=== PATIENT | female | born 1970 | race African-American/Black ===

== ENCOUNTER 2018-06-30 10:40 | Emergency (ER) | payer BC, OTHER ==
[2018-06-30] MEDS ORDERED: Cyclobenzaprine TAB* 10 MG PO ONE (12:46)
--- NOTE | 2018-06-30 12:57 | UC ---
Neck Pain HPI - HPI Summary HPI Summary: Woke up 3 days ago with inability to move her head at the neck. Denies any injury. Ibuprofen and icy hot not helping. Denies headache, fever, visual disturbances. No trismus or difficulties eating or swallowing. No previous similar neck injuries. 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 Onset/Duration Of Injury/Symptoms: Days Mechanism Of Injury: No Known Trauma Timing: Constant Onset/Duration: Sudden Onset Severity: Severe Pain Intensity: 10 Pain Scale Used: 0-10 Numeric Location: Discrete At: - NECK Character: Sharp, Stiff Aggravating Factors: Movement Alleviating Factors: Nothing Associated Signs & Symptoms: Negative: Swelling, Redness, Bruising, Fever, Weakness, Headache, Paresthesia - Allergies/Home Medications Allergies/Adverse Reactions: Allergies Allergy/AdvReac Type Severity Reaction Status Date / Time Penicillins Allergy Anaphylatic Verified 06/30/18 11:29 Shock PMH/Surg Hx/FS Hx/Imm Hx Cardiovascular History: Hypertension - Surgical History Surgical History: Yes Surgery Procedure, Year, and Place: hysterectomy 03/2014. tubal ligation - Family History Known Family History: Positive: Hypertension - Social History Alcohol Use: Weekly Substance Use Type: Cocaine, Marijuana Substance Use Comment - Amount & Last Used: daily Smoking Status (MU): Light Every Day Tobacco Smoker Type: Cigarettes Household Exposure Type: Cigarettes - Immunization History Most Recent Influenza Vaccination: unknown Most Recent Tetanus Shot: unknown Most Recent Pneumonia Vaccination: n/a Review Of Systems Constitutional: Positive: Negative Skin: Positive: Negative Cardiovascular: Positive: Negative Gastrointestinal: Positive: Negative Genitourinary: Positive: Negative Musculoskeletal: Positive: Arthralgia, Decreased ROM, Myalgia All Other Systems Reviewed And Are Negative: Yes Physical Exam Triage Information Reviewed: Yes Appearance: Well-Nourished, Pain Distress - MODERATE Vital Signs: Initial Vital Signs Temp 99.0 F 06/30/18 11:25 Pulse 80 06/30/18 11:25 Resp 18 06/30/18 11:25 BP 159/114 06/30/18 11:25 Pulse Ox 99 06/30/18 11:25 Vital Signs Reviewed: Yes Eyes: Positive: Conjunctiva Clear ENT: Positive: Hearing grossly normal, Pharynx normal, TMs normal. Negative: Trismus Neck: Positive: No Lymphadenopathy, Tenderness @ - TRAPEZIOUS MUSCLES BILATERALLY Respiratory Exam: Normal Cardiovascular Exam: Normal Abdomen Description: Positive: Soft Musculoskeletal: Positive: No Edema, ROM Limited @ - NECK Neurological: Positive: Alert, Other: - NEG KERNIG. UNABLE TO ASSESS MARILYNKI DUE TO PT DISCOMFORT. Psychological: Positive: Normal Response To Family, Age Appropriate Behavior Skin: Negative: Rashes Diagnostics - Radiology CERVICAL SPINE XRAYS Radiology Interpretation Completed By: Radiologist Summary of Radiographic Findings: 1. STRAIGHTENING AND REVERSAL OF THE NORMAL CERVICAL LORDOSIS. 2. 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 Re-Evaluation - Re-Evaluation First Eval Re-Evaluation Time: 13:35 - VERY SLIGHT IMPROVEMENT IN ROM AFTER FLEXERIL Change: Improved Neck Pain Course/Dx - Course Course Of Treatment: PATIENT WITH VERY SLIGHT IMPROVEMENT IN RANGE OF MOTION AFTER 10 MG OF FLEXERIL HERE IN THE UC. STATES SHE HAS TAKEN VALIUM IN THE PAST WITH NO ADVERSE EFFECTS. WILL GIVE A FEW DOSES OF VALIUM TO SEE IF THIS HELPS RELEASE heR MUSCLE SPASM. SHE HAS NO OTHER SIGNS OR SYMPTOMS OF A MORE INSIDIOUS PROCESS OTHER THAN MUSCLE SPASM. SHE WILL FOLLOW-UP WITH HER PCP AND STATES SHE WILL GO TO THE ER WITHOUT FAIL IF HER SYMPTOMS WORSEN. - Differential Dx/Diagnosis Provider Diagnosis: Cervical muscle strain Discharge - Sign-Out/Discharge Documenting (check all that apply): Patient Departure All imaging exams completed and their final reports reviewed: Yes - Discharge Plan Condition: Stable Disposition: HOME Prescriptions: Cyclobenzaprine TAB* [Flexeril TAB*] 10 mg PO BID PRN #30 tab PRN Reason: Pain Diazepam TAB(*) [Valium TAB(*)] 5 mg PO BID PRN #5 tab MDD 2 PRN Reason: Spasms - Neck Patient Education Materials: Cervical Strain (ED) Referrals: Joycelyn Arias [Primary Care Provider] - 1 Week Additional Instructions: NECK X-RAYS TODAY SHOW STRAIGHTENING OF THE NORMAL CERVICAL CURVATURE WELL SOME DEGENERATIVE DISC DISEASE BUT NOTHING ACUTE TO ACCOUNT FOR YOUR SYMPTOMS. TAKE THE FLEXERIL BEFORE BED. VALIUM MAY BE HELPFUL FOR RELEASING THE SPASMS WELL. DO NOT TAKE THESE MEDICATIONS SIMULTANEOUSLY THEY CAN BOTH CAUSE SEDATION. GO TO THE ED WITHOUT FAIL IF YOU DEVELOP WORSENING PAIN, SWELLING, HEADACHE, FEVER OR ANY OTHER CONCERNING SYMPTOMS. - Billing Disposition and Condition Condition: STABLE Disposition: Home
[2018-06-30 13:53] VITALS: BP 156/98
== END 2018-06-30 13:57 | disposition home or self-care (01) ==
LOC: UCEAST 10:40
DX: S16.1XXA Strain of muscle, fascia and tendon at neck level, initial encounter (principal); I10 Essential (primary) hypertension; F17.210 Nicotine dependence, cigarettes, uncomplicated; Z88.0 Allergy status to penicillin; X58.XXXA Exposure to other specified factors, initial encounter; Y92.9 Unspecified place or not applicable
CPT/HCPCS: 72050; 99202; A9270-GY; G0463

== ENCOUNTER 2019-04-01 15:19 | Emergency (ER) | payer BC ==
--- NOTE | 2019-04-01 16:10 | UC ---
Knee Pain HPI - HPI Summary HPI Summary: The patient is a 48-year-old female that injured her right knee in late February. She states she was playing around with her cousin has a family reunion. She landed directly on her right knee. Soon thereafter his right knee started to swell. She states that over the past week her swelling has increased as had her pain. She denies any fever. Her pain is worse on stairs. Her pain is worse with weightbearing. - History of Current Complaint Chief Complaint: UCLowerExtremity Stated Complaint: RT LEG PAIN Time Seen by Provider: 04/01/19 15:29 Hx Obtained From: Patient Hx Last Menstrual Period: inter com servicer Onset/Duration: Sudden Onset, Lasting Weeks Severity Initially: Mild Severity Currently: Moderate Pain Intensity: 7 Pain Scale Used: 0-10 Numeric Character: Dull, Aching, Throbbing Aggravating Factor(s): Movement, Weight Bearing, Prolonged Standing, Stairs Alleviating Factor(s): Rest, Cold Associated Signs And Symptoms: Positive: Swelling Able to Bear Weight: Yes Legs: 1 - swollen - Allergies/Home Medications Allergies/Adverse Reactions: Allergies Allergy/AdvReac Type Severity Reaction Status Date / Time Penicillins Allergy Anaphylatic Verified 04/01/19 15:52 Shock Home Medications: Home Medications Acetaminophen TAB* [Tylenol TAB*] 650 mg PO Q4H PRN 04/01/19 [History Confirmed 04/01/19] PMH/Surg Hx/FS Hx/Imm Hx Previously Healthy: Yes Cardiovascular History: Hypertension - Surgical History Surgical History: Yes Surgery Procedure, Year, and Place: hysterectomy 03/2014. tubal ligation - Family History Known Family History: Positive: Hypertension - Social History Alcohol Use: Weekly Substance Use Type: Cocaine, Marijuana Substance Use Comment - Amount & Last Used: daily Smoking Status (MU): Light Every Day Tobacco Smoker Type: Cigarettes Household Exposure Type: Cigarettes - Immunization History Most Recent Influenza Vaccination: unknown Most Recent Tetanus Shot: unknown Most Recent Pneumonia Vaccination: n/a Review of Systems All Other Systems Reviewed And Are Negative: Yes Constitutional: Positive: Negative Skin: Positive: Negative Eyes: Positive: Negative ENT: Positive: Negative Respiratory: Positive: Negative Cardiovascular: Positive: Negative Gastrointestinal: Positive: Negative Genitourinary: Positive: Negative Motor: Positive: Negative Neurovascular: Positive: Negative Musculoskeletal: Positive: Negative Neurological: Positive: Negative Psychological: Positive: Negative Physical Exam Triage Information Reviewed: Yes Appearance: Well-Appearing, No Pain Distress, Well-Nourished Vital Signs: Initial Vital Signs Temp 98.2 F 04/01/19 15:44 Pulse 90 04/01/19 15:44 Resp 16 04/01/19 15:44 BP 172/114 04/01/19 15:44 Pulse Ox 100 04/01/19 15:44 Vital Signs Reviewed: Yes Eyes: Positive: Conjunctiva Clear ENT: Positive: Hearing grossly normal. Negative: Nasal congestion, Nasal drainage, Trismus, Muffled voice, Hoarse voice Neck: Positive: Supple, Nontender, No Lymphadenopathy Respiratory: Positive: Lungs clear, Normal breath sounds, No respiratory distress, No accessory muscle use Cardiovascular: Positive: RRR, No Murmur Musculoskeletal: Positive: Other: - right knee- marked edema,slight patellar tenderness, stable Neurological: Positive: Alert Psychological Exam: Normal Skin Exam: Normal Knee Pain Course/Dx - Differential Dx/Diagnosis Provider Diagnosis: Contusion of right knee, Prepatellar bursitis, right knee, Right knee injury Discharge ED - Sign-Out/Discharge Documenting (check all that apply): Patient Departure All imaging exams completed and their final reports reviewed: Yes - Discharge Plan Condition: Stable Disposition: HOME Patient Education Materials: Knee Pain (ED), Knee Immobilizer (ED) Referrals: Joycelyn Arias [Primary Care Provider] - 2 Weeks (for BP recheck) Radha Aguilar MD [Medical Doctor] - As Soon As Possible - Billing Disposition and Condition Condition: STABLE Disposition: Home
[2019-04-01 16:46] VITALS: BP 160/110
== END 2019-04-01 17:13 | disposition home or self-care (01) ==
LOC: UCEAST 15:19
DX: S80.01XA Contusion of right knee, initial encounter (principal); M70.41 Prepatellar bursitis, right knee; S89.91XA Unspecified injury of right lower leg, initial encounter; X58.XXXA Exposure to other specified factors, initial encounter; Y93.9 Activity, unspecified; Y92.9 Unspecified place or not applicable; I10 Essential (primary) hypertension; F17.210 Nicotine dependence, cigarettes, uncomplicated
CPT/HCPCS: 99212; G0463